=== PATIENT | female | born 1950 | race Hispanic/Latino ===

== ENCOUNTER 2024-06-10 22:41 | Emergency (ER) | payer MEDICARE, MEDICAID ==
[2024-06-11 03:49] LABS: #Basophils 0.04 10x3/uL (0.0-0.2); %Basophils 0.7 % (0.0-1.0); %Eosinophils 0.7 % (0.0-10.0); %Lymphocytes 29.9 % (21.0-51.0); %Monocytes 6.6 % (0.0-10.0); %Neutrophils 61.9 % (42.0-75.0); Hematocrit 39.3 % (36.0-47.0); Hemoglobin 13.8 g/dL (12.0-16.0); Mean Corpuscular HGB CONC 35.1 g/dL (32.0-36.0); Mean Corpuscular Hemoglobin 34.7 pg (27.0-31.0); Mean Corpuscular Volume 98.7 fL (78.0-98.0); Mean Platelet Volume 10.1 fL (7.4-10.4); Platelet Count 339 10x3/uL (130-400); RBC Distribution Width 11.8 % (11.5-14.5); Red Blood Cell (RBC) Count 3.98 mill/uL (4.20-5.40)
[2024-06-11 04:18] LABS: ALT (SGPT) 17 U/L (8-55); AST (SGOT) 18 U/L (5-34); Albumin 4.2 g/dL (3.4-4.8); Alkaline Phosphatase 106 U/L (40-110); Anion Gap 12 mmol/L (10-20); BUN (Urea Nitrogen) 14 mg/dL (9.8-20.1); Bilirubin, Total 0.4 mg/dL (0.2-1.2); Calc. Creatinine Clearance 0 mL/min (70-130); Calcium 9.7 mg/dL (7.8-10.44); Carbon Dioxide 24 mmol/L (23-31); Chloride 105 mmol/L (98-107); Estimated GFR 74; Globulin 3.1 g/dL (2.4-3.5); Glucose 103 mg/dL (83-110); Potassium 4.5 mmol/L (3.5-5.1); Protein, Total 7.3 g/dL (5.8-8.1); Sodium 136 mmol/L (136-145)
[2024-06-11 04:47] LABS: Troponin I Less than 0.010 ng/mL (< 0.028)
== END 2024-06-11 05:47 | disposition home or self-care (01) ==
LOC: ERS 22:41
DX: I10 Essential (primary) hypertension (principal)
CPT/HCPCS: 80053; 84484; 85025; 93005